=== PATIENT | male | born 1985 | race African-American/Black ===

== ENCOUNTER → 2017-04-06 | Outpatient (CLI) | payer OTHER ==
--- NOTE | 2017-04-06 12:06 | XR ---
EXAMINATION TYPE: XR abdomen complete w decub DATE OF EXAM: 04/06/2017 CLINICAL HISTORY: Left upper quadrant abdominal pain. Increased pain with urination per patient. TECHNIQUE: Supine, upright, and left side down lateral decubitus views of the abdomen are obtained. COMPARISON: None. FINDINGS: Scattered gas is seen in non-distended stomach and small bowel loops. Gas and fecal mater ial is seen in non-distended colon. Scattered pelvic phleboliths are present. There is no visceromega ly, pneumoperitoneum, or abnormal calcification appreciated. The lung bases are clear and the osseo us structures are intact. IMPRESSION: Overall nonobstructive bowel gas pattern. No definite nephrolithiasis.
== END | disposition home or self-care (01) ==
LOC: RADXRMAIN 10:40
PROVIDERS: ATTEND Nurse Practitioner
DX: R10.12 Left upper quadrant pain (principal)
CPT/HCPCS: 74021

== ENCOUNTER 2018-05-23 09:24 | Day surgery (SDC) | payer OTHER ==
[2018-05-18 15:39] VITALS: BMI 25.8
[~2018-05-23 09:24] MED LIST: LACTATED RINGERS 1,000 ML IV SCH
[2018-05-23 09:56] VITALS: TEMP 98.2
[2018-05-23] MEDS ORDERED: LIDOCAINE 1% 20 ML VIAL (10MG/ML) FOR IV START INTRADERMA ONE (10:07)
[2018-05-23] MEDS ORDERED: GLYCOPYRROLATE 0.2 MG/ML 2 ML VIAL ONE (10:11)
[2018-05-23] MEDS ORDERED: LIDOCAINE 1% INJ 10MG/ML (20 ML MDV) ONE (10:11)
[2018-05-23] MEDS ORDERED: PROPOFOL 10 MG/ML 20 ML VIAL IV ONE (10:11)
[2018-05-23 10:46] VITALS: RESP 16
--- NOTE | 2018-05-23 10:47 | P.PCN ---
Date of Procedure: 05/23/18 Procedure(s) Performed: Procedures: 1. Esophagogastroduodenoscopy and biopsy. 2. Colonoscopy and biopsy. Preoperative diagnosis: Chronic diarrhea and epigastric pain. Postoperative diagnosis: 1. Small sliding hiatal hernia and and LA grade B distal esophagitis with no strictures or Flannery's esophagus. 2. Mild antral gastritis and minimal duodenitis. 3. Biopsies obtained from the duodenum, antrum and esophagus. 4. Sigmoid diverticulosis with no evidence of acute diverticulitis or strictures. 5. Otherwise, normal colon and terminal ileum. 6. Biopsies obtained from the terminal ileum and right colon. Preparation: HalfLytely prep. Sedation: Was provided by anesthesia. Brief clinical history: The patient is a 33-year-old male who is scheduled for this evaluation because of epigastric pain and chronic diarrhea of around 2 years duration. No significant weight loss or black stools. Occasional nausea and vomiting. This evaluation is to assess for complicated reflux disease, inflammatory bowel disease or other pathology. Procedure: With the patient on his left lateral decubitus position and after informed consent and adequate sedation, I passed the Olympus-GIF H 190 video upper endoscope through the cricopharyngeus down the esophagus. There was a small sliding hiatal hernia and the distal esophagus showed small erosion or 2 close to the GE junction but no ulcers, strictures or Flannery's esophagus. The endoscope was then passed into the stomach which was insufflated with air and inspected in detail including the retroflex view in the cardia. There was some mottling and erythema in the antrum but no ulcers or erosions. Pyloric channel, duodenal bulb, post bulbar area and descending duodenum showed minimal erythema. I obtained biopsies from the duodenum, antrum and esophagus then the endoscope was withdrawn and I proceeded with the colonoscopy. Perianal area did not show any fissures or fistulas. There were no masses felt on digital rectal examination. The Olympus CFH 190L video colonoscope was then inserted in the rectum in the usual fashion and advanced to the cecum. I intubated the ileocecal valve and had a brief look at the terminal ileum which appeared normal. The colon appeared normal. There were few diverticular orifices seen scattered in the sigmoid with no evidence of acute diverticulitis or strictures. No polyps or tumors were seen. I obtained a blind biopsy from the terminal ileum and biopsies from the right colon then I retroflexed the endoscope in the rectum before the endoscope was withdrawn. Low-grade internal hemorrhoids were noted with no evidence of bleeding. The patient tolerated the procedure well. Plan: The patient was reassured. Will await pathology results. Discussed dietary measures and local care for hemorrhoids. Further plans will be made based on his course and biopsy results. He will follow up with you as planned and I will be happy to see in the office of his symptoms persist.
[2018-05-23 11:00] VITALS: BP 100/59; PULSE 94
== END 2018-05-23 11:27 | disposition home or self-care (01) ==
LOC: ORWHC2ENDO 09:24
DX: K52.9 Noninfective gastroenteritis and colitis, unspecified (principal); K29.50 Unspecified chronic gastritis without bleeding; K29.80 Duodenitis without bleeding; K20.9 Esophagitis, unspecified; K44.9 Diaphragmatic hernia without obstruction or gangrene; K57.30 Diverticulosis of large intestine without perforation or abscess without bleeding; K64.8 Other hemorrhoids; F20.9 Schizophrenia, unspecified; I25.10 Atherosclerotic heart disease of native coronary artery without angina pectoris; I25.2 Old myocardial infarction; F17.200 Nicotine dependence, unspecified, uncomplicated; G89.29 Other chronic pain; M54.9 Dorsalgia, unspecified; Z88.8 Allergy status to other drugs, medicaments and biological substances
CPT/HCPCS: 88305; 45380; 43239; J2001; J2704

== ENCOUNTER 2020-08-04 07:50 | Emergency (ER) | payer OTHER ==
[2020-08-04 07:57] VITALS: BP 135/78; PULSE 104; RESP 18; TEMP 98.8
[2020-08-04] MEDS ORDERED: ACET/COD 300 MG/30 MG STARTER PACK 6 TAB BTL PO STA (08:10)
[2020-08-04] MEDS ORDERED: AMOXIC-POT CLAV 875MG STARTER PACK 2 TAB BTL PO STA (08:10)
--- NOTE | 2020-08-04 08:11 | ED ---
ENT HPI - General Chief complaint: Dental/Oral Stated complaint: Numbness of face/Headache/Tooth Pain Time Seen by Provider: 08/04/20 08:00 Source: patient Mode of arrival: ambulatory Limitations: no limitations - History of Present Illness Initial comments: 35-year-old male presents to emergency department with a chief complaint of dental pain. States this occurred about one week ago with gradual increase in severity. States he has poor dentition has not seen a dentist in quite some time. States is a partially fractured tooth #15 that hurts occasionally. He reports mild left-sided facial swelling and the pain is not begin to radiate towards the left side of his face. Reports the pain is worse with mastication. He denies any fevers or chills - Related Data Previous Rx's Medication Instructions Recorded Amoxicillin/Potassium Clav 1 tab PO Q12HR #20 tab 08/04/20 [Augmentin 875-125 Tablet] Allergies Allergy/AdvReac Type Severity Reaction Status Date / Time risperidone [From Risperdal] Allergy Anaphylaxis Verified 08/04/20 07:57 Review of Systems ROS Statement: Those systems with pertinent positive or pertinent negative responses have been documented in the HPI. ROS Other: All systems not noted in ROS Statement are negative. Past Medical History Additional Past Medical History / Comment(s): schizophrenia, patient states he had a heart attack in the past but did not receive any treatment. Chronic back pain, RECENT BLOOD IN STOOL, HEMORRHOIDS History of Any Multi-Drug Resistant Organisms: None Reported Past Surgical History: Orthopedic Surgery Additional Past Surgical History / Comment(s): Right Hand surgery Past Anesthesia/Blood Transfusion Reactions: No Reported Reaction Past Psychological History: Schizophrenia Smoking Status: Current some day smoker Past Alcohol Use History: Occasional Past Drug Use History: None Reported, Marijuana - Past Family History Father Family Medical History: No Reported History Additional Family Medical History / Comment(s): Dad is age 60 with no major medical problems. Mother Additional Family Medical History / Comment(s): Mother at age 49 from an overdose. Brother(s) Additional Family Medical History / Comment(s): Patient has 1 brother and possibly 6 step-siblings with no major medical problems. General Exam Limitations: no limitations General appearance: alert, in no apparent distress Head exam: Present: atraumatic, normocephalic, normal inspection Eye exam: Present: normal appearance, PERRL, EOMI Pupils: Present: normal accommodation ENT exam: Present: normal exam, normal oropharynx (Poor dentition. Partially fractured tooth #15), mucous membranes moist, TM's normal bilaterally, normal external ear exam Neck exam: Present: normal inspection, full ROM. Absent: tenderness Respiratory exam: Present: normal lung sounds bilaterally. Absent: respiratory distress, wheezes, rales, rhonchi, stridor Cardiovascular Exam: Present: regular rate, normal rhythm, normal heart sounds. Absent: systolic murmur Extremities exam: Present: normal inspection, full ROM, normal capillary refill. Absent: tenderness Back exam: Present: normal inspection, full ROM. Absent: tenderness, CVA tenderness (R), CVA tenderness (L) Neurological exam: Present: alert, oriented X3 Psychiatric exam: Present: normal affect, normal mood Skin exam: Present: warm, dry, intact, normal color Course Vital Signs 08/04/20 07:54 Temperature 98.8 F Pulse Rate 104 H Respiratory 18 Rate Blood Pressure 135/78 O2 Sat by Pulse 97 Oximetry Medical Decision Making - Medical Decision Making 35-year-old male presents to emergency Department with a chief complaint abdominal pain. On physical examination, multiple dental caries. Partially fractured tooth #15. Given Tylenol 3 starter pack for pain and Augmentin. Given contact information for local dental clinics. Return parameters were discussed patient was understanding and agreeable. Case discussed with Dr. Bang. Disposition Clinical Impression: Pain, dental Disposition: HOME SELF-CARE Condition: Stable Instructions (If sedation given, give patient instructions): Toothache (ED) Additional Instructions: Please return to the Emergency Department if symptoms worsen or any other concerns. Prescriptions: Amoxicillin/Potassium Clav [Augmentin 875-125 Tablet] 1 tab PO Q12HR #20 tab Is patient prescribed a controlled substance at d/c from ED?: No Referrals: Lilliana Odonnell MD [Primary Care Provider] - 1-2 days Time of Disposition: 08:14
== END 2020-08-04 08:23 | disposition home or self-care (01) ==
LOC: EC 07:50
DX: S02.5XXA Fracture of tooth (traumatic), initial encounter for closed fracture (principal); K02.9 Dental caries, unspecified; R51.9 Headache, unspecified; R20.0 Anesthesia of skin; F20.9 Schizophrenia, unspecified; I25.2 Old myocardial infarction; F17.200 Nicotine dependence, unspecified, uncomplicated; Z87.19 Personal history of other diseases of the digestive system; X58.XXXA Exposure to other specified factors, initial encounter
CPT/HCPCS: 99283

== ENCOUNTER → 2021-05-06 | Outpatient (CLI) | payer OTHER | END | disposition home or self-care (01) | LOC: LABWHC1 14:33 | PROVIDERS: ATTEND Nurse Practitioner | DX: M06.9 Rheumatoid arthritis, unspecified (principal); R00.2 Palpitations; Z82.49 Family history of ischemic heart disease and other diseases of the circulatory system | CPT/HCPCS: 36415; 84443 ==

== ENCOUNTER → 2022-03-29 | Outpatient (CLI) | payer OTHER | END | disposition home or self-care (01) | LOC: LABWHC1 15:49 | PROVIDERS: ATTEND Internal Medicine Interventional Cardiology | DX: R00.0 Tachycardia, unspecified (principal) | CPT/HCPCS: 36415; 84443 ==

== ENCOUNTER 2023-02-12 16:38 | Emergency (ER) | payer OTHER ==
[2023-02-12 17:15] VITALS: RESP 20; TEMP 97.9
--- NOTE | 2023-02-12 17:37 | ED ---
General Adult HPI - General Source: patient, RN notes reviewed Mode of arrival: ambulatory Limitations: no limitations <Christal Stratton - Last Filed: 02/12/23 17:37> - General Source: patient, RN notes reviewed, old records reviewed <Eednilson Sanchez - Last Filed: 02/12/23 23:32> - General Chief complaint: Extremity Problem,Nontraumatic Stated complaint: L shoulder pain Time Seen by Provider: 02/12/23 17:37 - History of Present Illness Initial comments: 38-year-old -Swedish male presents emergency Department with chief complaint of left shoulder pain. Patient reports left shoulder pain that started approximately 12:00. Denies any trauma or injury. It is worse with movement. She denies any shortness of breath, chest pain or tightness palpitations. (Christal Stratton) Patient is a 38-year-old male with past medical history remarkable for cardiac disease which she is unable to provide much more history about presents emergency Department complaining of left posterior shoulder pain. States is benign throughout the day today. Currently resolved as the patient took Tylenol prior to arrival. States it is worse with movement of his left shoulder. States he does have a cardiac history but is overall poor historian regarding this. Presents for further evaluation to rule out cardiac cause for the pain. Has been ongoing since early this morning. Patient originally evaluated as a quick note. Denies any other acute complaints at this time. (Edenilson Sanchez) - Related Data Previous Rx's Medication Instructions Recorded Amoxicillin/Potassium Clav 1 tab PO Q12HR #20 tab 08/04/20 [Augmentin 875-125 Tablet] Allergies Allergy/AdvReac Type Severity Reaction Status Date / Time risperidone [From Risperdal] Allergy Anaphylaxis Verified 08/04/20 07:57 Review of Systems ROS Other: All systems not noted in ROS Statement are negative. <Christal Stratton - Last Filed: 02/12/23 17:37> ROS Other: All systems not noted in ROS Statement are negative. <Edenilson Sanchez - Last Filed: 02/12/23 23:32> ROS Statement: Those systems with pertinent positive or pertinent negative responses have been documented in the HPI. Review of Systems: CONST: Denies fever EYES: Denies blurry vision ENT: Denies nasal congestion C/V: Denies Chest pain RESP: Denies shortness of breath GI: Denies abdominal pain : Denies dysuria SKIN: Denies rash. MSK: Denies joint pain. NEURO: Denies headache (Edenilson Sanchez) Past Medical History Past Medical History: Myocardial Infarction (NV), Rheumatoid Arthritis (RA) Additional Past Medical History / Comment(s): schizophrenia, patient states he had a heart attack in the past but did not receive any treatment. Chronic back pain, RECENT BLOOD IN STOOL, HEMORRHOIDS History of Any Multi-Drug Resistant Organisms: None Reported Past Surgical History: Orthopedic Surgery Additional Past Surgical History / Comment(s): Right Hand surgery Past Anesthesia/Blood Transfusion Reactions: No Reported Reaction Past Psychological History: Schizophrenia Smoking Status: Current some day smoker Past Alcohol Use History: Occasional Past Drug Use History: None Reported, Marijuana - Past Family History Father Family Medical History: No Reported History Additional Family Medical History / Comment(s): Dad is age 60 with no major medical problems. Mother Additional Family Medical History / Comment(s): Mother at age 49 from an overdose. Brother(s) Additional Family Medical History / Comment(s): Patient has 1 brother and possibly 6 step-siblings with no major medical problems. <Christal Stratton - Last Filed: 02/12/23 17:37> General Exam Limitations: no limitations <Christal Stratton - Last Filed: 02/12/23 17:37> <Edenilson Sanchez - Last Filed: 02/12/23 23:32> - General Exam Comments Initial Comments: Visual Physical Exam Vital signs reviewed General: Well-appearing, nontoxic, no acute distress. Head: Normocephalic, atraumatic Eyes: PERRLA, EOMI ENT: Airway patent Chest: Nonlabored breathing Skin: No visual rash, normal skin tone Neuro: Alert and oriented 3 Musculoskeletal: No gross abnormalities (Christal Stratton) General: Appears in no acute distress. HEAD: Normal with no signs of head trauma. EYES: PERRLA, EOMI, conjunctiva normal, no discharge. ENT: Hearing grossly intact, normal oropharynx. RESPIRATORY: Clear breath sounds bilaterally. No wheezes, rales, or rhonchi. C/V: Regular rate and rhythm. S1 and S2 auscultated, no edema, peripheral pulses 2+ and intact throughout ABD: Abd is soft, nontender, nondistended EXT: Normal range of motion, no obvious deformity SKIN: No rashes or lesions observed on exposed skin. NEURO: Alert and oriented x 4. (Edenilson Sanchez) Course Vital Signs 02/12/23 02/12/23 16:58 19:46 Temperature 97.9 F Pulse Rate 109 H 107 H Respiratory 20 20 Rate Blood Pressure 150/91 138/86 O2 Sat by Pulse 998 H 98 Oximetry Medical Decision Making <Christal Stratton - Last Filed: 02/12/23 17:37> - Lab Data Result diagrams: 02/12/23 17:35 02/12/23 17:35 - EKG Data -: EKG Interpreted by Me <Edenilson Sanchez - Last Filed: 02/12/23 23:32> - Medical Decision Making I performed the quick note portion of this exam, verbal signature Christal Stratton PA-C (Christal Stratton) Was pt. sent in by a medical professional or institution (DESHAWN Chakraborty, MANAGER OF PURCHASING, urgent care, hospital, or alf...) When possible be specific @ -No Did you speak to anyone other than the patient for history (EMS, parent, family, police, friend...)? What history was obtained from this source @ -No Did you review nursing and triage notes (agree or disagree)? Why? @ -I reviewed and agree with nursing and triage notes Were old charts reviewed (outside hosp., previous admission, EMS record, old EKG, old radiological studies, urgent care reports/EKG's, alf records)? Report findings @ -Old charts reviewed Differential Diagnosis (chest pain, altered mental status, abdominal pain women, abdominal pain men, vaginal bleeding, weakness, fever, dyspnea, syncope, headache, dizziness, GI bleed, back pain, seizure, CVA, palpatations, mental health, musculoskeletal)? @ -Rotator cuff injury, left shoulder pain, muscle strain, ACS. This list is not all-inclusive. EKG interpreted by me (3pts min.). @ -As above X-rays interpreted by me (1pt min.). @ -Chest x-ray and shoulder x-ray revealed no obvious acute cardio pulmonary process or shoulder injury. CT interpreted by me (1pt min.). @ -None done U/S interpreted by me (1pt. min.). @ -None done What testing was considered but not performed or refused? (CT, X-rays, U/S, labs)? Why? @ -None What meds were considered but not given or refused? Why? @ -None Did you discuss the management of the patient with other professionals (professionals i.e. , PA, MANAGER OF PURCHASING, lab, RT, psych nurse, director of social media marketing, window shade cutter and mounter, teacher, staff electronic warfare officer, heel caser)? Give summary @ -No Was smoking cessation discussed for >3mins.? @ -No Was critical care preformed (if so, how long)? @ -No Were there social determinants of health that impacted care today? How? (Homelessness, low income, unemployed, alcoholism, drug addiction, transportation, low edu. Level, literacy, decrease access to med. care, fpc, rehab)? @ -No Was there de-escalation of care discussed even if they declined (Discuss DNR or withdrawal of care, Hospice)? DNR status @ -No What co-morbidities impacted this encounter? (DM, HTN, Smoking, COPD, CAD, Cancer, CVA, ARF, Chemo, Hep., AIDS, mental health diagnosis, sleep apnea, morbid obesity)? @ -None Was patient admitted / discharged? Hospital course, mention meds given and route, prescriptions, significant lab abnormalities, going to OR and other p ertinent info. @ -Based on patient's presentation and physical exam, presents as a left shoulder pain that seems to be musculoskeletal. Worked up as a quick note. Workup remarkable for a normal troponin, EKG within acceptable limits, normal x- rays. Patient is asymptomatic. Seems to be musculoskeletal type of pain at this time. I did discuss this with the patient. I did offer observation admission repeat troponin testing however patient would like to go home at this time. I do believe it is reasonable. Seems to be musculoskeletal based on the story as well as the symptoms he was experiencing. Strict return precautions were discussed. He was in agreement this plan. Vital signs within acceptable limits. I instructed the patient to follow up with their PCP in the next 1-3 days. I explained that the patient should return to the emergency department if they experience any worsening symptoms. Strict return precautions were discussed with the patient. The patient expressed understanding of these instructions. I answered all questions that the patient had. The patient was discharged home in good condition with their prescriptions and follow up information. Undiagnosed new problem with uncertain prognosis? @ -No Drug Therapy requiring intensive monitoring for toxicity (Heparin, Nitro, I nsulin, Cardizem)? @ -No Were any procedures done? @ -No Diagnosis/symptom? @ -Left shoulder strain Acute, or Chronic, or Acute on Chronic? @ -Acute Uncomplicated (without systemic symptoms) or Complicated (systemic symptoms)? @ -Uncomplicated Side effects of treatment? @ -No Exacerbation, Progression, or Severe Exacerbation? @ -No Poses a threat to life or bodily function? How? (Chest pain, USA, NV, pneumonia, PE, COPD, DKA, ARF, appy, cholecystitis, CVA, Diverticulitis, Homicidal, Suicidal, threat to staff... and all critical care pts) @ -No (Edenilson Sanchez) - Lab Data Lab Results 02/12/23 02/12/23 02/12/23 Range/Units 17:35 17:35 17:35 WBC 13.6 H (3.8-10.6) k/uL RBC 5.23 (4.30-5.90) m/uL Hgb 15.8 (13.0-17.5) gm/dL Hct 45.3 (39.0-53.0) % MCV 86.6 (80.0-100.0) fL MCH 30.3 (25.0-35.0) pg MCHC 34.9 (31.0-37.0) g/dL RDW 15.5 (11.5-15.5) % Plt Count 273 (150-450) k/uL MPV 7.6 Neutrophils % 70 % Lymphocytes % 23 % Monocytes % 3 % Eosinophils % 3 % Basophils % 1 % Neutrophils # 9.4 H (1.3-7.7) k/uL Lymphocytes # 3.2 (1.0-4.8) k/uL Monocytes # 0.4 (0-1.0) k/uL Eosinophils # 0.3 (0-0.7) k/uL Basophils # 0.1 (0-0.2) k/uL Hyperchromasia Slight Poikilocytosis Marked PT 10.1 (10.0-12.5) sec INR 0.9 (<1.2) APTT 28.1 (22.0-30.0) sec Sodium 140 (137-145) mmol/L Potassium 3.8 (3.5-5.1) mmol/L Chloride 107 (98-107) mmol/L Carbon Dioxide 23 (22-30) mmol/L Anion Gap 10 mmol/L BUN 14 (9-20) mg/dL Creatinine 0.88 (0.66-1.25) mg/dL Est GFR (CKD-EPI)AfAm >90 (>60 ml/min/1.73 sqM) Est GFR (CKD-EPI)NonAf >90 (>60 ml/min/1.73 sqM) Glucose 119 H (74-99) mg/dL Calcium 9.4 (8.4-10.2) mg/dL Magnesium 2.0 (1.6-2.3) mg/dL Total Bilirubin 0.9 (0.2-1.3) mg/dL AST 23 (17-59) U/L ALT 30 (4-49) U/L Alkaline Phosphatase 114 (38-126) U/L Troponin I (0.000-0.034) ng/mL Total Protein 6.9 (6.3-8.2) g/dL Albumin 4.3 (3.5-5.0) g/dL 02/12/23 Range/Units 17:35 WBC (3.8-10.6) k/uL RBC (4.30-5.90) m/uL Hgb (13.0-17.5) gm/dL Hct (39.0-53.0) % MCV (80.0-100.0) fL MCH (25.0-35.0) pg MCHC (31.0-37.0) g/dL RDW (11.5-15.5) % Plt Count (150-450) k/uL MPV Neutrophils % % Lymphocytes % % Monocytes % % Eosinophils % % Basophils % % Neutrophils # (1.3-7.7) k/uL Lymphocytes # (1.0-4.8) k/uL Monocytes # (0-1.0) k/uL Eosinophils # (0-0.7) k/uL Basophils # (0-0.2) k/uL Hyperchromasia Poikilocytosis PT (10.0-12.5) sec INR (<1.2) APTT (22.0-30.0) sec Sodium (137-145) mmol/L Potassium (3.5-5.1) mmol/L Chloride (98-107) mmol/L Carbon Dioxide (22-30) mmol/L Anion Gap mmol/L BUN (9-20) mg/dL Creatinine (0.66-1.25) mg/dL Est GFR (CKD-EPI)AfAm (>60 ml/min/1.73 sqM) Est GFR (CKD-EPI)NonAf (>60 ml/min/1.73 sqM) Glucose (74-99) mg/dL Calcium (8.4-10.2) mg/dL Magnesium (1.6-2.3) mg/dL Total Bilirubin (0.2-1.3) mg/dL AST (17-59) U/L ALT (4-49) U/L Alkaline Phosphatase (38-126) U/L Troponin I 0.012 (0.000-0.034) ng/mL Total Protein (6.3-8.2) g/dL Albumin (3.5-5.0) g/dL - EKG Data EKG Comments: 12-lead Electrocardiogram Interpretation Note EKG was reviewed and interpreted by myself. 12-lead ECG performed at 1740 is interpreted by me as revealing normal sinus rhythm at a rate of 99 beats per minute. [place] is normal. UT interval is 176 ms, QRS duration 99 ms, QTc is 388 ms.. There were no ST or T wave abnormalities to suggest myocardial ischemia or injury. R wave progression across the precordium was satisfactory. By my interpretation this EKG is non-diagnostic for acute ischemia. (Edenilson Sanchez) Disposition <Christal Stratton - Last Filed: 02/12/23 17:37> Is patient prescribed a controlled substance at d/c from ED?: No Time of Disposition: 19:29 <Edenilson Sanchez - Last Filed: 02/12/23 23:32> Clinical Impression: Left shoulder strain Disposition: HOME SELF-CARE Condition: Good Instructions (If sedation given, give patient instructions): Rotator Cuff Injury (ED) Referrals: Lilliana Odonnell MD [Primary Care Provider] - 1-2 days
--- NOTE | 2023-02-12 17:50 | XR ---
EXAMINATION TYPE: XR chest 2V DATE OF EXAM: 02/12/2023 5:16 PM CLINICAL INDICATION:Male, 38 years old with history of Chest Pain; [facility] COMPARISON: None TECHNIQUE: XR chest 2V. Frontal PA and lateral views of the chest. FINDINGS: Lines/Tubes: None. Heart/mediastinum: Cardiomediastinal silhouette is well defined. Heart size is normal. Mediastinum appears normal. Pulmonary vascularity: Not increased, Lungs/Pleura: There is no evidence of pleural effusion, focal consolidation, or pneumothorax. Musculoskeletal: No acute osseous abnormality demonstrated in the limits of the exam. Other findings: None. IMPRESSION: No acute cardiopulmonary abnormality.
--- NOTE | 2023-02-12 17:51 | XR ---
EXAMINATION TYPE: XR shoulder complete LT DATE OF EXAM: 02/12/2023 5:16 PM CLINICAL INDICATION:Male, 38 years old with history of chest pain left shoulder pain; [facility] COMPARISON: None TECHNIQUE: XR shoulder complete LT; shoulder was examined in AP, internally rotated and scapular Y p rojections. FINDINGS: No evidence of acute osseous pathology, joint dislocation, or soft tissue swelling. The visualized po rtion of the chest is unremarkable. IMPRESSION: No acute radiographic abnormality of the left shoulder.
[2023-02-12 17:53] LABS: Basophils # (A) 0.1 k/uL (0-0.2); Basophils % (A) 1 %; Eosinophils # (A) 0.3 k/uL (0-0.7); Eosinophils % (A) 3 %; HCT 45.3 % (39.0-53.0); HGB 15.8 gm/dL (13.0-17.5); Hyperchromasia Slight; Lymphocytes # (A) 3.2 k/uL (1.0-4.8); Lymphocytes % (A) 23 %; MCH 30.3 pg (25.0-35.0); MCHC 34.9 g/dL (31.0-37.0); MCV 86.6 fL (80.0-100.0); Mean Platelet Volume 7.6; Monocytes # (A) 0.4 k/uL (0-1.0); Monocytes % (A) 3 %; Neutrophils # (A) 9.4 k/uL (1.3-7.7); Neutrophils % (A) 70 %; Platelet Count 273 k/uL (150-450); Poikilocytosis Marked; RBC 5.23 m/uL (4.30-5.90); RDW 15.5 % (11.5-15.5); WBC 13.6 k/uL (3.8-10.6)
[2023-02-12 18:10] LABS: ALT 30 U/L (4-49); AST 23 U/L (17-59); African American GFR (CKD) >90 (>60 ml/min/1.73 sqM); Albumin 4.3 g/dL (3.5-5.0); Alkaline Phosphatase 114 U/L (38-126); Anion Gap 10 mmol/L; Blood Urea Nitrogen 14 mg/dL (9-20); Calcium 9.4 mg/dL (8.4-10.2); Carbon Dioxide 23 mmol/L (22-30); Chloride 107 mmol/L (98-107); Glucose 119 mg/dL (74-99); Non-African American GFR(CKD) >90 (>60 ml/min/1.73 sqM); Potassium 3.8 mmol/L (3.5-5.1); Sodium 140 mmol/L (137-145); Total Bilirubin 0.9 mg/dL (0.2-1.3); Total Protein 6.9 g/dL (6.3-8.2)
[2023-02-12 18:13] LABS: INR 0.9 (<1.2); Partial Thromboplastin Time 28.1 sec (22.0-30.0); Prothrombin Time 10.1 sec (10.0-12.5)
[2023-02-12 19:48] VITALS: BP 138/86; PULSE 107
== END 2023-02-12 20:04 | disposition home or self-care (01) ==
LOC: EC 16:38
DX: S46.912A Strain of unspecified muscle, fascia and tendon at shoulder and upper arm level, left arm, initial encounter (principal); F17.200 Nicotine dependence, unspecified, uncomplicated; F12.90 Cannabis use, unspecified, uncomplicated; Z88.8 Allergy status to other drugs, medicaments and biological substances; X50.0XXA Overexertion from strenuous movement or load, initial encounter
CPT/HCPCS: 36415; 71046; 80053; 83735; 84484; 85025; 85610; 85730; 93005; 99284

== ENCOUNTER 2023-05-18 17:51 | Emergency (ER) | payer OTHER ==
--- NOTE | 2023-05-18 18:12 | ED ---
ENT HPI - General Source: patient, family, RN notes reviewed Mode of arrival: ambulatory Limitations: no limitations <Lula Morales - Last Filed: 05/18/23 18:11> <Rashawn Beckman - Last Filed: 05/18/23 22:00> - General Stated complaint: Headache Time Seen by Provider: 05/18/23 18:11 - History of Present Illness Initial comments: Quick note: Patient is a 38-year-old male presented to ER with chief complaint of a cracked tooth. States has been going on for 2 weeks and now is endorsing a headache. Denies any fevers or chills. He states he is not currently recently been on any antibiotics. He reports he was following up with a dentist but has not recently. (Lula Morales) 38-year-old male presenting to the ED with a chief complaint of headache. Patient reports history of headaches and states that he used to follow-up with neurology for this however has not followed up with them "in a while". He is unsure of what he has been diagnosed with however he does note he has a family history of aneurysms. Patient states over the last 2 weeks has had URI symptoms including headache. Reports that URI symptoms have resolved however is still having right-sided headache. Over the last few days he also has noticed some numbness around his mouth. Patient states that he thought that his headache may be due to a cracked tooth however at this time denies dental pain. Reports headache is in the right occipital region. Does seem somewhat consistent with history of headaches. No fever or chills. No chest pain or shortness of breath. No other complaints at this time. (Rashawn Beckman) - Related Data Previous Rx's Medication Instructions Recorded Amoxicillin/Potassium Clav 1 tab PO Q12HR #20 tab 08/04/20 [Augmentin 875-125 Tablet] Allergies Allergy/AdvReac Type Severity Reaction Status Date / Time risperidone [From Risperdal] Allergy Anaphylaxis Verified 08/04/20 07:57 Review of Systems ROS Other: All systems not noted in ROS Statement are negative. <Lula Morales - Last Filed: 05/18/23 18:11> ROS Other: All systems not noted in ROS Statement are negative. <Rashawn Beckman - Last Filed: 05/18/23 22:00> ROS Statement: Those systems with pertinent positive or pertinent negative responses have been documented in the HPI. Past Medical History Past Medical History: Myocardial Infarction (AK), Rheumatoid Arthritis (RA) Additional Past Medical History / Comment(s): schizophrenia, patient states he had a heart attack in the past but did not receive any treatment. Chronic back pain, RECENT BLOOD IN STOOL, HEMORRHOIDS History of Any Multi-Drug Resistant Organisms: None Reported Past Surgical History: Orthopedic Surgery Additional Past Surgical History / Comment(s): Right Hand surgery Past Anesthesia/Blood Transfusion Reactions: No Reported Reaction Past Psychological History: Schizophrenia Smoking Status: Current some day smoker Past Alcohol Use History: Occasional Past Drug Use History: None Reported, Marijuana - Past Family History Father Family Medical History: No Reported History Additional Family Medical History / Comment(s): Dad is age 60 with no major medical problems. Mother Additional Family Medical History / Comment(s): Mother at age 49 from an overdose. Brother(s) Additional Family Medical History / Comment(s): Patient has 1 brother and possibly 6 step-siblings with no major medical problems. <Lula Morales - Last Filed: 05/18/23 18:11> General Exam <Lula Morales - Last Filed: 05/18/23 18:11> General appearance: alert, in no apparent distress Eye exam: Present: normal appearance, PERRL, EOMI Neck exam: Present: normal inspection Respiratory exam: Present: normal lung sounds bilaterally Cardiovascular Exam: Present: regular rate, normal rhythm GI/Abdominal exam: Present: soft, normal bowel sounds. Absent: distended, tenderness, guarding, rebound, rigid Neurological exam: Present: alert, oriented X3, CN II-XII intact (NIH stroke scale 0) Skin exam: Present: warm, dry <Rashawn Beckman - Last Filed: 05/18/23 22:00> - General Exam Comments Initial Comments: Visual Physical Exam Vital signs reviewed General: Well-appearing, nontoxic, no acute distress. Head: Normocephalic, atraumatic Eyes: PERRLA, EOMI ENT: Airway patent Chest: Nonlabored breathing Skin: No visual rash, normal skin tone Neuro: Alert and oriented 3 Musculoskeletal: No gross abnormalities (Lula Morales) Course Vital Signs 05/18/23 18:10 Temperature 98.8 F Pulse Rate 82 Respiratory 16 Rate Blood Pressure 130/80 O2 Sat by Pulse 98 Oximetry Medical Decision Making <Lula Morales - Last Filed: 05/18/23 18:11> - Lab Data Result diagrams: 05/18/23 19:39 05/18/23 19:39 <Rashawn Beckman - Last Filed: 05/18/23 22:00> - Medical Decision Making I performed the quick note portion of this chart. Electronically signed by Lula Morales PA-C (Lula Morales) Was pt. sent in by a medical professional or institution (DESHAWN Chakraborty, [employer], urgent care, hospital, or group home...) When possible be specific @ -No Did you speak to anyone other than the patient for history (EMS, parent, family, police, friend...)? What history was obtained from this source @ -No Did you review nursing and triage notes (agree or disagree)? Why? @ -I reviewed and agree with nursing and triage notes Were old charts reviewed (outside hosp., previous admission, EMS record, old EKG, old radiological studies, urgent care reports/EKG's, group home records)? Report findings @ -No old charts were reviewed Differential Diagnosis (chest pain, altered mental status, abdominal pain women, abdominal pain men, vaginal bleeding, weakness, fever, dyspnea, syncope, headache, dizziness, GI bleed, back pain, seizure, CVA, palpatations, mental health, musculoskeletal)? @ -Differential Headache: Migraine, tension, cluster, carbon monoxide, central venous thrombosis, pension karma temporal arteritis, acute closure glaucoma, intercranial hemorrhage, mastoiditis, sinusitis, head injury, this is not meant to be an all-inclusive list. EKG interpreted by me (3pts min.). @ -None X-rays interpreted by me (1pt min.). @ -None done CT interpreted by me (1pt min.). @ -CT of the brain interpreted me showing no evidence of acute finding. CT angio head and neck interpreted me showing no evidence of acute finding. U/S interpreted by me (1pt. min.). @ -None done What testing was considered but not performed or refused? (CT, X-rays, U/S, labs)? Why? @ -None What meds were considered but not given or refused? Why? @ -None Did you discuss the management of the patient with other professionals (professionals i.e. , PA, [employer], lab, RT, psych nurse, secondary social studies teacher, senior firewall engineer, teacher, seismology technical officer, window caser)? Give summary @ -No Was smoking cessation discussed for >3mins.? @ -No Was critical care preformed (if so, how long)? @ -No Were there social determinants of health that impacted care today? How? (Homelessness, low income, unemployed, alcoholism, drug addiction, transportation, low edu. Level, literacy, decrease access to med. care, half-way, rehab)? @ -No Was there de-escalation of care discussed even if they declined (Discuss DNR or withdrawal of care, Hospice)? DNR status @ -No What co-morbidities impacted this encounter? (DM, HTN, Smoking, COPD, CAD, Cancer, CVA, ARF, Chemo, Hep., AIDS, mental health diagnosis, sleep apnea, m orbid obesity)? @ -None Was patient admitted / discharged? Hospital course, mention meds given and route, prescriptions, significant lab abnormalities, going to OR and other pertinent info. @ -Discharge 38-year-old male presenting to the ED with a chief complaint of headache. Reports has had this headache for the last 2 weeks. Initially states that he had URI symptoms accompanying this headache however reports at this time all of his URI symptoms have resolved however due to persistent headache presenting to the ED for further evaluation. Does note history of headaches and notes that he follows with neurology however he states he has a family history of aneurysms and is worried that this may be causing his headache. On examination patient appears comfortable and is in no apparent distress. Cranial nerves II through XII intact. NIH stroke scale 0. Laboratory studies reviewed. CBC, CMP, coagulation studies, UA largely unremarkable. CT of the brain showed no evide nce of acute finding. CT angio of the head and neck revealed no evidence of acute finding. At this time vital signs stable afebrile. Discharged home in stable condition. Advised to follow-up with his PCP and his neurologist. Discussed return precautions with patient who verbalized agreement. Undiagnosed new problem with uncertain prognosis? @ -No Drug Therapy requiring intensive monitoring for toxicity (Heparin, Nitro, Insulin, Cardizem)? @ -No Were any procedures done? @ -No Diagnosis/symptom? @ -Headache Acute, or Chronic, or Acute on Chronic? @ -Acute Uncomplicated (without systemic symptoms) or Complicated (systemic symptoms)? @ -Uncomplicated Side effects of treatment? @ -No Exacerbation, Progression, or Severe Exacerbation? @ -No Poses a threat to life or bodily function? How? (Chest pain, [place], AK, pneumonia, PE, COPD, DKA, ARF, appy, cholecystitis, CVA, Diverticulitis, Homicidal, Suicidal, threat to staff... and all critical care pts) @ -No (TamelakanikaRashawn) - Lab Data Lab Results 05/18/23 05/18/23 05/18/23 Range/Units 19:39 19:39 19:39 WBC 5.2 (3.8-10.6) k/uL RBC 4.82 (4.30-5.90) m/uL Hgb 14.6 (13.0-17.5) gm/dL Hct 41.8 (39.0-53.0) % MCV 86.7 (80.0-100.0) fL MCH 30.2 (25.0-35.0) pg MCHC 34.9 (31.0-37.0) g/dL RDW 15.5 (11.5-15.5) % Plt Count 228 (150-450) k/uL MPV 7.6 Neutrophils % Not Reportable Neutrophils % (Manual) 16 % Lymphocytes % Not Reportable Lymphocytes % (Manual) 74 % Monocytes % Not Reportable Monocytes % (Manual) 7 % Eosinophils % Not Reportable Eosinophils % (Manual) 3 % Basophils % Not Reportable Neutrophils # Not Reportable Neutrophils # (Manual) 0.83 L (1.3-7.7) k/uL Lymphocytes # Not Reportable Lymphocytes # (Manual) 3.85 (1.0-4.8) k/uL Monocytes # Not Reportable Monocytes # (Manual) 0.36 (0-1.0) k/uL Eosinophils # Not Reportable Eosinophils # (Manual) 0.16 (0-0.7) k/uL Basophils # Not Reportable Nucleated RBCs 0 (0-0) /100 WBC Manual Slide Review Performed Reactive Lymphocytes Present Hyperchromasia Moderate Poikilocytosis Marked PT 9.8 L (10.0-12.5) sec INR 0.9 (<1.2) APTT 29.8 (22.0-30.0) sec Sodium (137-145) mmol/L Potassium (3.5-5.1) mmol/L Chloride (98-107) mmol/L Carbon Dioxide (22-30) mmol/L Anion Gap mmol/L BUN (9-20) mg/dL Creatinine (0.66-1.25) mg/dL Est GFR (CKD-EPI)AfAm (>60 ml/min/1.73 sqM) Est GFR (CKD-EPI)NonAf (>60 ml/min/1.73 sqM) Glucose (74-99) mg/dL Calcium (8.4-10.2) mg/dL Total Bilirubin (0.2-1.3) mg/dL AST (17-59) U/L ALT (4-49) U/L Alkaline Phosphatase (38-126) U/L Total Protein (6.3-8.2) g/dL Albumin (3.5-5.0) g/dL Urine Color Colorless Urine Appearance Clear (Clear) Urine pH 6.5 (5.0-8.0) Ur Specific Telford >1.050 H (1.001-1.035) Urine Protein Trace H (Negative) Urine Glucose (UA) Negative (Negative) Urine Ketones Negative (Negative) Urine Blood Negative (Negative) Urine Nitrite Negative (Negative) Urine Bilirubin Negative (Negative) Urine Urobilinogen 3.0 (<2.0) mg/dL Ur Leukocyte Esterase Negative (Negative) Influenza Type A (PCR) (Not Detectd) Influenza Type B (PCR) (Not Detectd) RSV (PCR) (Not Detectd) SARS-CoV-2 (PCR) (Not Detectd) 05/18/23 05/18/23 Range/Units 19:39 19:39 WBC (3.8-10.6) k/uL RBC (4.30-5.90) m/uL Hgb (13.0-17.5) gm/dL Hct (39.0-53.0) % MCV (80.0-100.0) fL MCH (25.0-35.0) pg MCHC (31.0-37.0) g/dL RDW (11.5-15.5) % Plt Count (150-450) k/uL MPV Neutrophils % Neutrophils % (Manual) % Lymphocytes % Lymphocytes % (Manual) % Monocytes % Monocytes % (Manual) % Eosinophils % Eosinophils % (Manual) % Basophils % Neutrophils # Neutrophils # (Manual) (1.3-7.7) k/uL Lymphocytes # Lymphocytes # (Manual) (1.0-4.8) k/uL Monocytes # Monocytes # (Manual) (0-1.0) k/uL Eosinophils # Eosinophils # (Manual) (0-0.7) k/uL Basophils # Nucleated RBCs (0-0) /100 WBC Manual Slide Review Reactive Lymphocytes Hyperchromasia Poikilocytosis PT (10.0-12.5) sec INR (<1.2) APTT (22.0-30.0) sec Sodium 142 (137-145) mmol/L Potassium 4.4 (3.5-5.1) mmol/L Chloride 110 H (98-107) mmol/L Carbon Dioxide 23 (22-30) mmol/L Anion Gap 9 mmol/L BUN 16 (9-20) mg/dL Creatinine 0.87 (0.66-1.25) mg/dL Est GFR (CKD-EPI)AfAm >90 (>60 ml/min/1.73 sqM) Est GFR (CKD-EPI)NonAf >90 (>60 ml/min/1.73 sqM) Glucose 110 H (74-99) mg/dL Calcium 9.0 (8.4-10.2) mg/dL Total Bilirubin 0.6 (0.2-1.3) mg/dL AST 34 (17-59) U/L ALT 32 (4-49) U/L Alkaline Phosphatase 110 (38-126) U/L Total Protein 6.8 (6.3-8.2) g/dL Albumin 4.1 (3.5-5.0) g/dL Urine Color Urine Appearance (Clear) Urine pH (5.0-8.0) Ur Specific Telford (1.001-1.035) Urine Protein (Negative) Urine Glucose (UA) (Negative) Urine Ketones (Negative) Urine Blood (Negative) Urine Nitrite (Negative) Urine Bilirubin (Negative) Urine Urobilinogen (<2.0) mg/dL Ur Leukocyte Esterase (Negative) Influenza Type A (PCR) Not Detected (Not Detectd) Influenza Type B (PCR) Not Detected (Not Detectd) RSV (PCR) Not Detected (Not Detectd) SARS-CoV-2 (PCR) Not Detected (Not Detectd) Disposition <Lula Morales - Last Filed: 05/18/23 18:11> Is patient prescribed a controlled substance at d/c from ED?: No Time of Disposition: 22:00 <Rashawn Beckman - Last Filed: 05/18/23 22:00> Clinical Impression: Headache Disposition: HOME SELF-CARE Condition: Good Instructions (If sedation given, give patient instructions): Acute Headache (ED) Additional Instructions: Please return to the Emergency Department if symptoms worsen or any other concer ns. Please follow-up with your PCP and your neurologist. Referrals: Lilliana Odonnell MD [Primary Care Provider] - 1-2 days
[2023-05-18 18:26] VITALS: TEMP 98.8
[2023-05-18 19:54] LABS: HCT 41.8 % (39.0-53.0); HGB 14.6 gm/dL (13.0-17.5); Hyperchromasia Moderate; MCH 30.2 pg (25.0-35.0); MCHC 34.9 g/dL (31.0-37.0); MCV 86.7 fL (80.0-100.0); Mean Platelet Volume 7.6; Platelet Count 228 k/uL (150-450); Poikilocytosis Marked; RBC 4.82 m/uL (4.30-5.90); RDW 15.5 % (11.5-15.5); WBC 5.2 k/uL (3.8-10.6)
[2023-05-18 20:47] LABS: INR 0.9 (<1.2); Partial Thromboplastin Time 29.8 sec (22.0-30.0); Prothrombin Time 9.8 sec (10.0-12.5)
[2023-05-18] MEDS: SODIUM CHLORIDE 0.9% 1,000 ML IV STA (20:53)
[2023-05-18 21:00] LABS: ALT 32 U/L (4-49); AST 34 U/L (17-59); African American GFR (CKD) >90 (>60 ml/min/1.73 sqM); Albumin 4.1 g/dL (3.5-5.0); Alkaline Phosphatase 110 U/L (38-126); Anion Gap 9 mmol/L; Blood Urea Nitrogen 16 mg/dL (9-20); Carbon Dioxide 23 mmol/L (22-30); Chloride 110 mmol/L (98-107); Glucose 110 mg/dL (74-99); Non-African American GFR(CKD) >90 (>60 ml/min/1.73 sqM); Potassium 4.4 mmol/L (3.5-5.1); Sodium 142 mmol/L (137-145); Total Bilirubin 0.6 mg/dL (0.2-1.3); Total Protein 6.8 g/dL (6.3-8.2)
[2023-05-18 21:01] LABS: Appearance,Urine Clear (Clear); Bilirubin,Urine Negative (Negative); Blood,Urine Negative (Negative); Color,Urine Colorless; Glucose,Urine (UA) Negative (Negative); Ketones,Urine Negative (Negative); Leukocyte Esterase,Urine Negative (Negative); Nitrite,Urine Negative (Negative); PH, Urine 6.5 (5.0-8.0); Protein,Urine Trace (Negative)
[2023-05-18 21:04] LABS: Specific Gravity,Urine >1.050 (1.001-1.035)
[2023-05-18 21:31] LABS: Eosinophils # (M) 0.16 k/uL (0-0.7); Lymphocytes # (M) 3.85 k/uL (1.0-4.8); Monocytes # (M) 0.36 k/uL (0-1.0); Neutrophils # (M) 0.83 k/uL (1.3-7.7); Neutrophils % (M) 16 %; Nucleated Red Blood Cells 0 /100 WBC (0-0); Total Cells Counted 100
[2023-05-18 21:33] LABS: Reactive Lymphocytes Present
--- NOTE | 2023-05-18 21:39 | CT ---
EXAMINATION TYPE: CT brain wo con CT DLP: combined 1777.6 mGycm, Automated exposure control for dose reduction was used. DATE OF EXAM: 05/18/2023 8:28 PM COMPARISON: None. CLINICAL INDICATION:Male, 38 years old with history of Headache, headache TECHNIQUE: Brain: Axial CT images of the brain were obtained with coronal and sagittal reformats created and rev iewed. Contrast used: None. Oral contrast used: None. FINDINGS: Extra-axial spaces: No abnormal extra-axial fluid collections. Ventricular system: Within normal limits. Cerebral parenchyma: No increased attenuation to suggest acute intraparenchymal hemorrhage. The gra y-white matter interface appears maintained. No significant atrophy. White matter unremarkable by C T. Cerebellum: No acute abnormality. Mass effect: No evidence of mass effect or midline shift. Intracranial vasculature: Unremarkable Soft tissues: No acute or concerning abnormality. Visualized orbits: Orbital contents appear grossly intact. Calvarium/osseous structures: No evidence of calvarial fracture. Paranasal sinuses and mastoid air cells: Moderate circumferential mucosal thickening in the left maxi llary sinus with small superimposed fluid level. Mild mucosal thickening in other paranasal sinuses. Mastoid air cells are clear. MRI is more sensitive for detecting acute processes such as infarct, and may be considered if clinica lly warranted. IMPRESSION: 1. No acute intracranial CT abnormality. 2. Moderate circumferential mucosal thickening in the left maxillary sinus with small superimposed f luid level. Correlate for acute on chronic sinus disease.
--- NOTE | 2023-05-18 21:51 | CT ---
EXAMINATION TYPE: CT angio head neck DATE OF EXAM: 05/18/2023 8:29 PM COMPARISON: Same day noncontrast CT head.. CLINICAL INDICATION:Male, 38 years old with history of family hx aneurysm right sided FINNEY; PHH, headac he TECHNIQUE: Axially acquired helical CT angiogram of the head and neck was obtained with contrast. Axi al images are supplemented with 3D reconstructions [facility] NASCET criteria used. Contrast used: 65 cc mL of Isovue 370 with IV Contrast, Oral contrast used: None. CT DLP: combined 1777.6 mGycm, Automated exposure control for dose reduction was used. FINDINGS: CTA Neck: A 3 vessel aortic arch is shown. No significant atherosclerotic disease or dissection. The visualiz ed pulmonary trunk is borderline mildly enlarged at 2.9 cm. Right carotid system: The common carotid is patent. There is no hemodynamically significant diameter stenosis, dissection, or pseudoaneurysm present. Left carotid system: The common carotid is patent. There is no hemodynamically significant diameter s tenosis, dissection, or pseudoaneurysm present. Vertebral arteries: There is no significant atherosclerotic plaque at the origins of the vertebral ar teries. The vertebrals are then otherwise patent to the skull base. The left vertebral artery is dominant. Other: Visualized neck soft tissues show no concerning abnormality. Markable thyroid. Cervical spine shows no acute abnormality. Mild straightening of the normal lordosis can be seen with pain and/or mu scular spasm. Imaged portions of the lung apices are clear.. CTA Head: Normal enhancement of the cavernous portions of the ICAs without significant stenosis. Supraclinoid ICAs, bifurcations, ACAs, MCAs appear normally patent. Anterior communicating artery is definitely seen and unremarkable. The intracranial vertebral arteries enhance normally. Left is dominant. Basilar artery is patent and unremarkable. Normal basilar bifurcation without evidence of aneurysm. Visualized proximal technical sales consultant are p atent. A right posterior communicating artery is seen. A left posterior communicating artery is seen. No intracranial large vessel occlusion, hemodynamically significant stenosis, aneurysm, dissection, o r arteriovenous malformation is shown. The dural venous sinuses appear grossly patent without evidence of thrombosis. Other: Please refer to same-day CT head report.. IMPRESSION: CTA neck: Patent neck CTA. There is no hemodynamically significant diameter stenosis, dissection, or pseudoaneu rysm. CTA head: Patent head CTA. No intracranial large vessel occlusion, significant stenosis, or sizable aneurysm de tected in the limits of CTA.
[2023-05-18 22:38] VITALS: BP 145/80; PULSE 79; RESP 18
== END 2023-05-18 22:30 | disposition home or self-care (01) ==
LOC: EC 17:51
DX: R51.9 Headache, unspecified (principal); F17.200 Nicotine dependence, unspecified, uncomplicated; F12.90 Cannabis use, unspecified, uncomplicated; Z88.8 Allergy status to other drugs, medicaments and biological substances
CPT/HCPCS: 99284; 96360; 36415; 80053; 85025; 85610; 85730; 81003; 87636; 70496; 70450; 70498; Q9967